=== PATIENT | female | born 1950 | race Two or more races ===

== ENCOUNTER → 2023-12-28 | Day surgery (SDC) | payer OTHER ==
[~2023-12-28] MED LIST: AMOX1TAB5 PO; CEFAZOLIN SODIUM 1,000 MG VIAL IV ONE; CEFAZOLIN SODIUM 1,000 MG VIAL ONE; GENTAMICIN SULFATE 40 MG/ML VIAL ONE; LIDOCAINE HCL 1% 200MG/20ML VIAL IJ ONE; TRAM1TAB98 PO; VANCOMYCIN HCL 1,000 MG VIAL IR ONE
== END | disposition home or self-care (01) ==
LOC: ADM 12-22 10:00 → CIR.AMB 06:55
PROVIDERS: ATTEND Obstetrics & Gynecology Gynecology
DX: N39.41 Urge incontinence (principal); N32.81 Overactive bladder; R15.9 Full incontinence of feces; I10 Essential (primary) hypertension
CPT/HCPCS: 64581; 64590; 95971; C1767; C1778

== ENCOUNTER 2025-01-06 12:01 | Emergency (ER) | payer OTHER ==
[~2025-01-06] VITALS: Ht 157.5 cm; Wt 71.7 kg
[~2025-01-06 12:01] MED LIST changes: -CEFAZOLIN SODIUM 1,000 MG VIAL IV ONE; -CEFAZOLIN SODIUM 1,000 MG VIAL ONE; -GENTAMICIN SULFATE 40 MG/ML VIAL ONE; -LIDOCAINE HCL 1% 200MG/20ML VIAL IJ ONE; -VANCOMYCIN HCL 1,000 MG VIAL IR ONE
[2025-01-06] MEDS ORDERED: ONDANSETRON HCL 2 MG/ML VIAL ONE (12:44)
[2025-01-06] MEDS ORDERED: ONDANSETRON HCL 2 MG/ML VIAL IV ONE (12:45)
[2025-01-06] MEDS ORDERED: FAMOTIDINE/PF 20 MG/2 ML VIAL ONE (12:45)
[2025-01-06] MEDS ORDERED: 0.9 % SODIUM CHLORIDE 1,000 ML IV ONE (12:45)
[2025-01-06] MEDS ORDERED: FAMOtidine 10 MG/ML (4ML VIAL) IV ONE (12:45)
[2025-01-06 13:31] LABS: HEMOGLOBIN 13.7 g/dL (12.0-15.00); MEAN CELL VOLUME 92.5 fL (80.00-100.00); MEAN CORPUSCULAR HEMOGLOBIN 30.9 pg (27.00-32.0); MEAN CORPUSCULAR HGB CONC 33.4 g/dl (32.0-36.0); PLATELET COUNT 208 K/uL (150-450); RED BLOOD COUNT 4.43 M/uL (4.00-6.00); RED CELL DISTRIBUTION WIDTH 13.3 % (11.5-14.5)
[2025-01-06 14:20] LABS: PH,URINE 5.5 (5.0-8.0); URINE APPEARANCE Cloudy; URINE BILIRRUBIN Negative (NEGATIVE); URINE BLOOD Small; URINE COLOR Yellow; URINE GLUCOSE Negative (NEGATIVE); URINE KETONE 15 (NEGATIVE); URINE LEUKOCYTE Moderate; URINE NITRATE Positive; URINE PROTEIN 30 (NEGATIVE); URINE UROBILINOGEN 0.2 E.U./dl
[2025-01-06 14:24] LABS: URINE EPITHELIAL CELLS 27.8 uL (0.0-38.8); URINE RBC 53.9 uL (0.0-20.8); URINE WBC 596.1 uL (0.0-23.2)
[2025-01-06 14:33] LABS: URINE BACTERIA > 9821.5 uL (0.0-1933); URINE CAST 0.88 uL (0.0-1.40)
[2025-01-06 14:33] LABS: ALBUMIN 3.5 gm/dL (3.4-5.0); CALCIUM 9.4 mg/dL (8.5-10.1); CREATININE SERUM 0.84 mg/dL (0.55-1.02); GFR 66.28; POTASSIUM 4.11 mEq/L (3.5-5.1)
[2025-01-06 14:36] LABS: BILIRUBIN TOTAL 0.46 mg/dL (0.3-1.2); TOTAL PROTEIN 7.5 gm/dL (6.4-8.2)
[2025-01-06 14:38] LABS: TROPONIN I hs 11.8 PG/ML (42.2-82.3)
[2025-01-06] MEDS ORDERED: OSEL75CA PO (14:56)
[2025-01-06] MEDS ORDERED: PEPCID AC20 MG PO (14:56)
[2025-01-06] MEDS ORDERED: BACTRIM DS TAB1 EACH PO (14:56)
[2025-01-06] MEDS ORDERED: ZOFRAN8 MG PO (14:56)
== END 2025-01-06 17:07 | disposition home or self-care (01) ==
LOC: ER 12:04
PROVIDERS: General Practice
DX: N39.0 Urinary tract infection, site not specified (principal); J10.1 Influenza due to other identified influenza virus with other respiratory manifestations; R11.10 Vomiting, unspecified; Z20.822 Contact with and (suspected) exposure to COVID-19; E03.8 Other specified hypothyroidism

== ENCOUNTER 2025-01-08 10:09 | Emergency (ER) | payer OTHER ==
[~2025-01-08] VITALS: Ht 157.5 cm; Wt 69.9 kg
[~2025-01-08 10:09] MED LIST changes: +BACTRIM DS TAB1 EACH PO; +OSEL75CA PO; +PEPCID AC20 MG PO; +ZOFRAN8 MG PO
[2025-01-08] MEDS ORDERED: SYNTHROID75 MCG PO (10:28)
[2025-01-08] MEDS ORDERED: IPRATROPIUM/ALBUTEROL SULFATE 3 ML AMPUL.NEB IH SCH (11:30)
[2025-01-08] MEDS ORDERED: BENZONATATE 100 MG CAPSULE PO ONE (11:30)
[2025-01-08] MEDS ORDERED: IPRATROPIUM/ALBUTEROL SULFATE 3 ML AMPUL.NEB IH ONE (12:02)
[2025-01-08] MEDS ORDERED: BENZONATATE200 M1 PO (16:14)
== END 2025-01-08 16:28 | disposition home or self-care (01) ==
LOC: ER 10:12
DX: J10.1 Influenza due to other identified influenza virus with other respiratory manifestations (principal); E03.8 Other specified hypothyroidism